=== PATIENT | male | born 1965 | race Caucasian/White ===

== ENCOUNTER 2018-07-25 09:40 | Day surgery (SDC) | payer OTHER ==
[2018-07-19 15:12] LABS: BASOPHILS % (AUTO) 0.7 % (0-1); EOSINOPHILS # (AUTO) 0.2 X10'3 (0-0.9); LYMPHOCYTES # (AUTO) 1.3 X10'3 (1.1-4.8); MEAN CORPUSCULAR HEMOGLOBIN 29.4 PG (27.0-31.0); MEAN CORPUSCULAR HGB CONC 33.7 g/dL (33.0-36.5); MEAN CORPUSCULAR VOLUME 87.2 FL (78-98); MEAN PLATELET VOLUME 7.8 FL (7.4-10.4); MONOCYTES # (AUTO) 0.7 X10'3 (0-0.9); MONOCYTES % (AUTO) 12.6 % (2-12); NEUTROPHILS # (AUTO) 3.5 X10'3 (1.8-7.7); NEUTROPHILS % (AUTO) 60.7 % (42-75); PRE OP HEMATOCRIT 43.6 % (42.0-52.0); PRE OP HEMOGLOBIN 14.7 g/dL (14.0-17.9); PRE OP PLATELET COUNT 230 X10'3 (140-440); RED BLOOD COUNT 4.99 X10'6 (4.70-6.10)
[2018-07-19 15:29] LABS: ALBUMIN 4.1 G/DL (3.4-5.0); ALBUMIN/GLOBULIN RATIO 1.3 (1.1-1.5); ALKALINE PHOSPHATASE 78 IU/L (46-116); BLOOD UREA NITROGEN 27 MG/DL (7-18); CHLORIDE 106 MMOL/L (99-107); CREATININE 0.87 MG/DL (0.60-1.10); PRE OP ALT 29 U/L (30-65); PRE OP ANION GAP 6 (8-16); PRE OP AST 13 U/L (10-37); PRE OP BILIRUB, TOTAL 0.3 MG/DL (0.0-1.0); PRE OP GLUCOSE 109 MG/DL (70-104); PRE OP POTASSIUM 4.2 MMOL/L (3.4-5.1); PRE OP SODIUM 141 MMOL/L (135-145); TOTAL CARBON DIOXIDE 28.7 MMOL/L (24-32); TOTAL PROTEIN 7.2 G/DL (6.4-8.2); eGFR > 90 ML/MIN
[2018-07-25] VITALS (16 sets, daily range): BP systolic 123–152; BP diastolic 77–93
[~2018-07-25] VITALS: Ht 190.5 cm; Wt 117.3 kg
[~2018-07-25 09:40] MED LIST: ACET-2119 PO; LORA10TA65 PO; NAPR220T67 PO
[2018-07-25] MEDS ORDERED: famotidine 20mg tablet PO ONE (10:00)
[2018-07-25] MEDS ORDERED: ringers solution, lacted 1,000 ML IV SCH ×2 (10:00→12:05)
[2018-07-25] MEDS ORDERED: cefazolin/dext.iso 2gm/100ml 100 ML IV ONE (10:30)
[2018-07-25] MEDS ORDERED: MIDAZolam 5mg/5ml vial ONE (11:14)
[2018-07-25] MEDS ORDERED: fentaNYL/PF 50MCG/1 ML 2ML syringe ONE (11:14)
[2018-07-25] MEDS ORDERED: sevoflurane 250ml liquid IH ONE (11:17)
[2018-07-25] MEDS ORDERED: propofol inj 20 ML IV ONE (11:28)
[2018-07-25] MEDS ORDERED: LIDOcaine 2% (20mg/ml) 5ml vial ONE (11:28)
[2018-07-25] MEDS ORDERED: dexamethasone sod phosphate 4mg/ml inj. ONE (11:40)
[2018-07-25] MEDS ORDERED: ondansetron/PF 4mg/2ml inj IV PRN (12:05)
[2018-07-25] MEDS ORDERED: proCHLORperazine 10 MG/2 ml inj IV PRN (12:05)
[2018-07-25] MEDS ORDERED: meperidine/PF 25mg/ml syringe IV PRN ×3 (12:05)
[2018-07-25] MEDS ORDERED: morphine 4 MG/ML inj SYRINge IV PRN ×2 (12:05)
[2018-07-25] MEDS ORDERED: ondansetron/PF 4mg/2ml inj ONE (12:22)
[2018-07-25] MEDS ORDERED: ketorolac trometh. 30mg/ml inj. ONE (13:03)
--- NOTE | 2018-07-25 13:06 | NUR ---
Received from OR via [facility], accompanied by Anesthesiologist DR KABA and report given by Anesthesiologist. 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 Addendum: 07/25/18 at 1339 by Ivory Novak RN Amended: Links added.
== END 2018-07-25 15:36 | disposition home or self-care (01) ==
LOC: PAS 09:40
PROVIDERS: ATTEND Orthopaedic Surgery
DX: S82.62XA Displaced fracture of lateral malleolus of left fibula, initial encounter for closed fracture (principal); S93.01XA Subluxation of right ankle joint, initial encounter; X58.XXXA Exposure to other specified factors, initial encounter; Y93.9 Activity, unspecified; Y92.89 Other specified places as the place of occurrence of the external cause; Y99.9 Unspecified external cause status; G89.18 Other acute postprocedural pain; Z79.899 Other long term (current) drug therapy
CPT/HCPCS: 27792; 36415; 64450; 76942; 80053; 85025; 93005; C1713; J0690; J1100; J1885; J2001; J2250; J2405; J2704; J3010; A6449; A7000; J7120